=== PATIENT | male | born 1980 | race Caucasian/White ===

== ENCOUNTER 2023-02-03 07:48 | Day surgery (SDC) | payer OTHER ==
[2023-02-03] VITALS (11 sets, daily range): BP systolic 102–117; BP diastolic 46–78
[~2023-02-03] VITALS: Ht 177.8 cm; Wt 95.7 kg
[~2023-02-03 07:48] MED LIST: CYCL10 PO; DEPO-TESTO200 MG/1 M IM
--- NOTE | 2023-02-03 09:08 | NUR ---
Ambulatory in [facility] warming gown applied. History, Chart, Medications and Allergies reviewed before start of procedure.Lungs clear T/O to Auscultation. Patient confirms NPO status and agrees with scheduled surgery. Pre-Op teaching done. Pt verbalizes understanding. Patient States Post-Procedure ride home has been arranged.
--- NOTE | 2023-02-03 12:27 | NUR ---
Patient up to Ambulate independently. Gait steady. Discharge instructions reviewed with patient. Patient verbalizes understanding. Copy given to patient to take home, WELL S/O. Patient States Post-Procedure ride home has been arranged. Discharged via wheelchair to private car for ride home.
--- NOTE | 2023-02-03 12:27 | NUR ---
PT DRESSING C/D/I.STEFF DRAIN WNL. DISCUSSED STEFF DRAIN IN DISCHARGE INSTRUCTIONS.
== END 2023-02-03 12:27 | disposition home or self-care (01) ==
LOC: ORSCMMR 07:48 → ORD 09:15 → ORSCMMR 12:27
PROVIDERS: Surgery
PROC: 0HX8XZZ Transfer Buttock Skin, External Approach (ICD-10-PCS; principal; 2023-02-03 09:15)
DX: L05.91 Pilonidal cyst without abscess (principal)
CPT/HCPCS: 88304; A9270; J0295; J0330; J1100; J1885; J2250; J2405; J2795; J3010; J7120